=== PATIENT | female | born 1955 | race Caucasian/White ===

== ENCOUNTER 2016-11-21 11:04 | Emergency (ER) | payer OTHER ==
[~2016-11-21] VITALS: Ht 160 cm; Wt 75.0 kg
[2016-11-21 11:10] VITALS: BP 167/96; PULSE 98; RESP 20; O2SAT 98
[2016-11-21 11:18] VITALS: BP 168/74; PULSE 90; RESP 20; TEMP 98.4; O2SAT 97
[2016-11-21 11:24] VITALS: RESP 20; O2SAT 98
[2016-11-21] MEDS ORDERED: SODIUM CHLORIDE 0.9% FLUSH 10 ML FLUSH IVF PRN (11:30)
--- NOTE | 2016-11-21 11:32 | PD ---
HPI Chief Complaint: Dizziness Time Seen by Provider: 11:05 Travel History International Travel<30 days: No Contact w/Intl Traveler<30days: No Traveled to known affect area: No History of Present Illness HPI Patient is a 60-year-old female presenting to the emergency department for evaluation of dizziness and visual changes. 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 Patient states that her vision was cloudy, she felt shaky and she had black floaters. She reports a history of ocular migraines. Patient currently denies any headache, chest pain, shortness of breath, abdominal pain, nausea, vomiting. PFSH Past Medical History Depression: Yes High Cholesterol: Yes Diabetes: Yes Patient Takes Glucophage: Yes GERD: Yes Hypertension: Yes Neurologic: Yes (radiculopathy, neuropathy) Migraines: Yes (ocular) Thyroid Disease: Yes Tetanus Vaccination: > 5 Years Influenza Vaccination: Yes Para: 2 Past Surgical History Hysterectomy: Yes (TOTAL ) Other Surgery: Yes (5 back surgeries) Social History Alcohol Use: Yes (OCC ) Tobacco Use: Yes Substance Use: No Allergies-Medications (Allergen,Severity, Reaction): Coded Allergies: Prevacid (Verified Allergy, Unknown, RASH, 11/21/16) Sulfa (Verified Allergy, Unknown, 11/21/16) Reported Meds & Prescriptions Reported Meds & Active Scripts Active Reported Metformin (Metformin HCl) 1,000 Mg Tab 1,000 Mg PO Q12HR With meals Zocor (Simvastatin) 20 Mg Tab 20 Mg PO HS Protonix (Pantoprazole Sodium) 40 Mg Tab 40 Mg PO BID Flexeril (Cyclobenzaprine HCl) 10 Mg Tab 10 Mg PO TID Zoloft (Sertraline HCl) 100 Mg Tab 100 Mg PO DAILY Telmisartan 40 Mg Tab 40 Mg PO DAILY Mobic (Meloxicam) 15 Mg Tab 15 Mg PO DAILY Trazodone (Trazodone HCl) 100 Mg Tablet 100 Mg PO HS Levothyroxine (Levothyroxine Sodium) 125 Mcg Tab 125 Mcg PO DAILY Aleve (Naproxen Sodium) 220 Mg Capsule 220 Mg PO BID PRN Review of Systems Except as stated in HPI: all other systems reviewed are Neg General / Constitutional: No: Fever, Chills Eyes: Positive: Blurred Vision, Blind Spots, Visual changes HENT: Positive: Lightheadedness, No: Headaches, Neck Pain Cardiovascular: No: Chest Pain or Discomfort, Diaphoresis, Dyspnea on exertion Respiratory: No: Shortness of Breath Gastrointestinal: No: Nausea, Vomiting, Abdominal Pain Genitourinary: No: Dysuria Musculoskeletal: No: Myalgias Neurologic: Positive: Dizziness, Coordination Problem (gait disturbance) Physical Exam Narrative GENERAL: Well-developed, well-nourished, alert female. Resting comfortably in no acute distress. SKIN: Warm and dry. HEAD: Atraumatic. Normocephalic. EYES: Pupils equal and round. No scleral icterus. No injection or drainage. Extraocular movements are intact. ENT: No nasal bleeding or discharge. Mucous membranes pink and moist. NECK: Trachea midline. No JVD. CARDIOVASCULAR: Regular rate and rhythm. RESPIRATORY: No accessory muscle use. Clear to auscultation. Breath sounds equal bilaterally. GASTROINTESTINAL: Abdomen soft, non-tender, nondistended. Hepatic and splenic margins not palpable. MUSCULOSKELETAL: Extremities without clubbing, cyanosis, or edema. No obvious deformities. NEUROLOGICAL: Awake and alert. No obvious cranial nerve deficits. Motor grossly within normal limits. Five out of 5 muscle strength in the arms and legs. Normal speech. PSYCHIATRIC: Appropriate mood and affect; insight and judgment normal. Data Data Last Documented VS Vital Signs Date Time Temp Pulse Resp B/P Pulse Ox O2 Delivery O2 Flow Rate FiO2 11/21/16 11:24 20 98 Room Air 11/21/16 11:18 90 11/21/16 11:18 98.4 168/74 Orders Electrocardiogram (11/21/16 11:17) Prothrombin Time / Inr (Pt) (11/21/16 11:17) Act Partial Throm Time (Ptt) (11/21/16 11:17) Complete Blood Count With Diff (11/21/16 11:17) Comprehensive Metabolic Panel (11/21/16 11:17) Creatine Kinase (Cpk) (11/21/16 11:17) Troponin I (11/21/16 11:17) Urinalysis - C+S If Indicated (11/21/16 11:17) Ct Brain W/O Iv Contrast(Rout) (11/21/16 11:17) Ecg Monitoring (11/21/16 11:17) Iv Access Insert/Monitor (11/21/16 11:17) Oximetry (11/21/16 11:17) Blood Glucose (11/21/16 11:17) Sodium Chloride 0.9% Flush (Ns Flush) (11/21/16 11:30) Labs Laboratory Tests Test 11/21/16 11/21/16 11:17 12:37 Urine Color YELLOW Urine Turbidity CLEAR Urine pH 6.5 Urine Specific [place] 1.008 Urine Protein NEG mg/dL Urine Glucose (UA) NEG mg/dL Urine Ketones NEG mg/dL Urine Occult Blood NEG Urine Nitrite NEG Urine Bilirubin NEG Urine Urobilinogen LESS THAN 2.0 MG/DL Urine Leukocyte Esterase NEG Urine RBC 1 /hpf Urine WBC 1 /hpf Urine Squamous Epithelial <1 /hpf Cells Microscopic Urinalysis Comment CATH-CULT NOT IND White Blood Count 9.1 TH/MM3 Red Blood Count 4.19 MIL/MM3 Hemoglobin 13.3 GM/DL Hematocrit 38.1 % Mean Corpuscular Volume 90.9 FL Mean Corpuscular Hemoglobin 31.6 PG Mean Corpuscular Hemoglobin 34.8 % Concent Red Cell Distribution Width 14.2 % Platelet Count 122 TH/MM3 Mean Platelet Volume 10.7 FL Neutrophils (%) (Auto) 65.1 % Lymphocytes (%) (Auto) 25.8 % Monocytes (%) (Auto) 6.1 % Eosinophils (%) (Auto) 2.6 % Basophils (%) (Auto) 0.4 % Neutrophils # (Auto) 5.9 TH/MM3 Lymphocytes # (Auto) 2.4 TH/MM3 Monocytes # (Auto) 0.6 TH/MM3 Eosinophils # (Auto) 0.2 TH/MM3 Basophils # (Auto) 0.0 TH/MM3 CBC Comment DIFF FINAL Differential Comment Prothrombin Time 9.4 SEC Prothromb Time International 0.9 RATIO Ratio Activated Partial 23.5 SEC Thromboplast Time Sodium Level 139 MEQ/L Potassium Level 4.3 MEQ/L Chloride Level 105 MEQ/L Carbon Dioxide Level 23.9 MEQ/L Anion Gap 10 MEQ/L Blood Urea Nitrogen 13 MG/DL Creatinine 0.79 MG/DL Estimat Glomerular Filtration 75 ML/MIN Rate Random Glucose 108 MG/DL Calcium Level 8.9 MG/DL Total Bilirubin 0.3 MG/DL Aspartate Amino Transf 30 U/L (AST/SGOT) Alanine Aminotransferase 50 U/L (ALT/SGPT) Alkaline Phosphatase 89 U/L Total Creatine Kinase 110 U/L Troponin I LESS THAN 0.02 NG/ML Total Protein 7.3 GM/DL Albumin 3.8 GM/DL MDM Medical Decision Making Medical Screen Exam Complete: Yes Emergency Medical Condition: Yes Interpretation(s) Last Impressions Head CT 11/21/16 1117 Draft Impressions: Service Date/Time: Monday, November 21, 2016 11:55 - CONCLUSION: Normal examination for a patient of this age. Marcell Garcia MD Laboratory Tests Test 11/21/16 11/21/16 11:17 12:37 Urine Color YELLOW Urine Turbidity CLEAR Urine pH 6.5 Urine Specific [place] 1.008 Urine Protein NEG mg/dL Urine Glucose (UA) NEG mg/dL Urine Ketones NEG mg/dL Urine Occult Blood NEG Urine Nitrite NEG Urine Bilirubin NEG Urine Urobilinogen LESS THAN 2.0 MG/DL Urine Leukocyte Esterase NEG Urine RBC 1 /hpf Urine WBC 1 /hpf Urine Squamous Epithelial <1 /hpf Cells Microscopic Urinalysis Comment CATH-CULT NOT IND White Blood Count 9.1 TH/MM3 Red Blood Count 4.19 MIL/MM3 Hemoglobin 13.3 GM/DL Hematocrit 38.1 % Mean Corpuscular Volume 90.9 FL Mean Corpuscular Hemoglobin 31.6 PG Mean Corpuscular Hemoglobin 34.8 % Concent Red Cell Distribution Width 14.2 % Platelet Count 122 TH/MM3 Mean Platelet Volume 10.7 FL Neutrophils (%) (Auto) 65.1 % Lymphocytes (%) (Auto) 25.8 % Monocytes (%) (Auto) 6.1 % Eosinophils (%) (Auto) 2.6 % Basophils (%) (Auto) 0.4 % Neutrophils # (Auto) 5.9 TH/MM3 Lymphocytes # (Auto) 2.4 TH/MM3 Monocytes # (Auto) 0.6 TH/MM3 Eosinophils # (Auto) 0.2 TH/MM3 Basophils # (Auto) 0.0 TH/MM3 CBC Comment DIFF FINAL Differential Comment Prothrombin Time 9.4 SEC Prothromb Time International 0.9 RATIO Ratio Activated Partial 23.5 SEC Thromboplast Time Sodium Level 139 MEQ/L Potassium Level 4.3 MEQ/L Chloride Level 105 MEQ/L Carbon Dioxide Level 23.9 MEQ/L Anion Gap 10 MEQ/L Blood Urea Nitrogen 13 MG/DL Creatinine 0.79 MG/DL Estimat Glomerular Filtration 75 ML/MIN Rate Random Glucose 108 MG/DL Calcium Level 8.9 MG/DL Total Bilirubin 0.3 MG/DL Aspartate Amino Transf 30 U/L (AST/SGOT) Alanine Aminotransferase 50 U/L (ALT/SGPT) Alkaline Phosphatase 89 U/L Total Creatine Kinase 110 U/L Troponin I LESS THAN 0.02 NG/ML Total Protein 7.3 GM/DL Albumin 3.8 GM/DL Vital Signs Date Time Temp Pulse Resp B/P Pulse Ox O2 Delivery O2 Flow Rate FiO2 11/21/16 11:24 20 98 Room Air 11/21/16 11:18 90 20 97 Room Air 11/21/16 11:18 98.4 90 20 168/74 97 Room Air 11/21/16 11:10 98 20 167/96 98 Differential Diagnosis CVA versus TIA versus vertigo versus cardiac arrhythmia versus migraine versus other Narrative Course Patient's 60-year-old female presenting for evaluation of neurological symptoms. Her vital signs are stable, she is neurologically intact. Labs and imaging ordered and pending. Initial EKG shows sinus rhythm with rate of 90. IV access established, patient placed on telemetry monitoring and continuous pulse oximetry. Chemistry reviewed and no acute findings identified, urinalysis is unremarkable , troponin is negative. CT scan of the brain read by radiologist shows no acute findings, and is normal for patient of this age. 1250-patient reassessed, she reports resolution of visual changes as well as dizziness. CBC and coags reviewed, no acute findings. Pt likely suffered a migraine or possible episode of vertigo. She remains neurologically intact. Pt also seen and evaluated by Dr. Parham. Pt requesting to go home. Pt informed of results. She has a PCP with which she can follow up with. She was given strict return precautions. Pt is stable for discharge. Diagnosis Primary Impression: Vertigo Referrals: Khoa Chaney MD PhD 2 days Patient Instructions: General Instructions, Vertigo (ED) Additional Instructions: Follow-up with Dr. Chaney Return to emergency department immediately for any new or worsening symptoms Med/Other Pt SpecificInfo: No Change to Meds Disposition: 01 DISCHARGE HOME Condition: Stable Nicolette Patel [employer] TECHNICIAN Nov 21, 2016 11:32
[2016-11-21] MEDS ORDERED: TELM1TAB PO (11:55)
[2016-11-21] MEDS ORDERED: ZOLO100T PO (11:55)
[2016-11-21] MEDS ORDERED: LEVO125T4 PO (11:55)
[2016-11-21] MEDS ORDERED: PROT40TA PO (11:55)
[2016-11-21] MEDS ORDERED: TRAZ100T6 PO (11:55)
[2016-11-21] MEDS ORDERED: CYCL1TAB29 PO (11:55)
[2016-11-21] MEDS ORDERED: METF1000 PO (11:55)
[2016-11-21] MEDS ORDERED: NAPR220C22 PO (11:55)
[2016-11-21] MEDS ORDERED: ZOCO20TA PO (11:55)
[2016-11-21] MEDS ORDERED: MOBI15TA PO (11:55)
[2016-11-21 12:10] LABS: BLOOD, URINE NEG (NEG); GLUCOSE,URINE NEG (NEG); KETONE, URINE NEG (NEG); NITRITE,URINE NEG (NEG); PH, URINE 6.5 (5.0-8.5); SQUAMOUS EPITHELIAL CELL URINE <1 /hpf (0-5); URINE COLOR YELLOW (YELLW/STRAW)
[2016-11-21 12:15] LABS: COMMENT (UR) CATH-CULT NOT IND; CULTURE IF INDICATED CATH CULTURE NOT IND
--- NOTE | 2016-11-21 12:22 | RADRPT ---
EXAM DATE/TIME: 11/21/2016 11:55 [facility] COMPARISON: No previous studies available for comparison. INDICATIONS : Patient became dizzy,lightheaded,falls to the left. RADIATION DOSE: 29.20 CTDIvol (mGy) MEDICAL HISTORY : Hypertension. Hypothyroidism. Diabetes mellitus type 2. SURGICAL HISTORY : Hysterectomy. Back surgery ENCOUNTER: Initial ACUITY: 1 day PAIN SCALE: 0/10 LOCATION: cranial TECHNIQUE: Multiple contiguous axial images were obtained of the head. Using automated exposure control and adj ustment of the mA and/or kV according to patient size, radiation dose was kept as low as reasonably a chievable to obtain optimal diagnostic quality images. DICOM format image data is available electro nically for review and comparison. FINDINGS: CEREBRUM: The ventricles are normal for age. No evidence of midline shift, mass lesion, hemorrhage or acute in farction. No extra-axial fluid collections are seen. POSTERIOR FOSSA: The cerebellum and brainstem are intact. The 4th ventricle is midline. The cerebellopontine angle i s unremarkable. EXTRACRANIAL: The visualized portion of the orbits is intact. SKULL: The calvaria is intact. No evidence of skull fracture. CONCLUSION: Normal examination for a patient of this age. Marcell Garcia MD on November 21, 2016 at 12:21 Board Certified Radiologist. This report was verified electronically.
[2016-11-21 12:46] LABS: ALKALINE PHOSPHATASE 89 U/L (45-117); ALT (GPT) 50 U/L (10-53); ANION GAP 10 MEQ/L (5-15); AST (GOT) 30 U/L (15-37); BICARBONATE 23.9 MEQ/L (21.0-32.0); BLOOD UREA NITROGEN 13 MG/DL (7-18); CHLORIDE 105 MEQ/L (98-107); CREATINE KINASE 110 U/L (26-192); GLOMERULAR FILTRATION RATE 75 ML/MIN (>89); SODIUM (NA) 139 MEQ/L (136-145); TOTAL BILIRUBIN ADULT 0.3 MG/DL (0.2-1.0)
[2016-11-21 12:47] LABS: POTASSIUM 4.3 MEQ/L (3.5-5.1)
[2016-11-21 12:49] LABS: AUTOMATED NEUTROPHIL # 5.9 TH/MM3 (1.8-7.7); BASOPHIL % 0.4 % (0.0-2.0); EOSINOPHIL # 0.2 TH/MM3 (0-0.4); EOSINOPHIL % 2.6 % (0.0-4.0); HEMATOCRIT 38.1 % (35.0-46.0); HEMO FLAGS DIFF FINAL; LYMPH % 25.8 % (9.0-44.0); LYMPHOCYTE # 2.4 TH/MM3 (1.0-4.8); MEAN CELL VOLUME 90.9 FL (80.0-100.0); MEAN CORPUSCULAR HEMOGLOBIN 31.6 PG (27.0-34.0); MEAN CORPUSCULAR HGB CONC 34.8 % (32.0-36.0); MONO % 6.1 % (0.0-8.0); NEUT % 65.1 % (16.0-70.0); PLATELET COUNT 122 TH/MM3 (150-450); RED BLOOD COUNT 4.19 MIL/MM3 (4.00-5.30); RED CELL DISTRIBUTION WIDTH 14.2 % (11.6-17.2); WHITE BLOOD COUNT 9.1 TH/MM3 (4.0-11.0)
[2016-11-21 12:56] LABS: APTT (PATIENT) 23.5 SEC (24.3-30.1); INTERNATIONAL NORMALIZED RATIO 0.9 RATIO; PROTHROMBIN TIME - PATIENT 9.4 SEC (9.8-11.6)
--- NOTE | 2016-11-21 13:06 | PD ---
Physical Exam Narrative I, Dr. Parham, have reviewed the advance practice practitioner's documentation and am in agreement, met with the patient face to face, made the diagnosis, and the medical decision making was done by me. *My assessment and Findings: Vertigo vs. ocular migraine vs. electrolyte abnormality 60yo F with history of ocular migraine presents with episode of what sounds like peripheral vertigo. Sudden onset dizziness and feeling like she was going to tilt to one side and also had floaters. Worst with head movement. States she always has ringing in her ears. Labs reviewed, no leukocytosis. Troponin negative. UA negative. CT brain negative. Pt reevaluated at bedside and feels better. Her symptoms had resolved on its own. Will have pt follow up with her PMD Dr. Chaney as an outpatient. Data Data Last Documented VS Vital Signs Date Time Temp Pulse Resp B/P Pulse Ox O2 Delivery O2 Flow Rate FiO2 11/21/16 11:24 20 98 Room Air 11/21/16 11:18 90 11/21/16 11:18 98.4 168/74 Orders Electrocardiogram (11/21/16 11:17) Prothrombin Time / Inr (Pt) (11/21/16 11:17) Act Partial Throm Time (Ptt) (11/21/16 11:17) Complete Blood Count With Diff (11/21/16 11:17) Comprehensive Metabolic Panel (11/21/16 11:17) Creatine Kinase (Cpk) (11/21/16 11:17) Troponin I (11/21/16 11:17) Urinalysis - C+S If Indicated (11/21/16 11:17) Ct Brain W/O Iv Contrast(Rout) (11/21/16 11:17) Ecg Monitoring (11/21/16 11:17) Iv Access Insert/Monitor (11/21/16 11:17) Oximetry (11/21/16 11:17) Blood Glucose (11/21/16 11:17) Sodium Chloride 0.9% Flush (Ns Flush) (11/21/16 11:30) Labs Laboratory Tests Test 11/21/16 11/21/16 11:17 12:37 Urine Color YELLOW Urine Turbidity CLEAR Urine pH 6.5 Urine Specific [place] 1.008 Urine Protein NEG mg/dL Urine Glucose (UA) NEG mg/dL Urine Ketones NEG mg/dL Urine Occult Blood NEG Urine Nitrite NEG Urine Bilirubin NEG Urine Urobilinogen LESS THAN 2.0 MG/DL Urine Leukocyte Esterase NEG Urine RBC 1 /hpf Urine WBC 1 /hpf Urine Squamous Epithelial <1 /hpf Cells Microscopic Urinalysis Comment CATH-CULT NOT IND White Blood Count 9.1 TH/MM3 Red Blood Count 4.19 MIL/MM3 Hemoglobin 13.3 GM/DL Hematocrit 38.1 % Mean Corpuscular Volume 90.9 FL Mean Corpuscular Hemoglobin 31.6 PG Mean Corpuscular Hemoglobin 34.8 % Concent Red Cell Distribution Width 14.2 % Platelet Count 122 TH/MM3 Mean Platelet Volume 10.7 FL Neutrophils (%) (Auto) 65.1 % Lymphocytes (%) (Auto) 25.8 % Monocytes (%) (Auto) 6.1 % Eosinophils (%) (Auto) 2.6 % Basophils (%) (Auto) 0.4 % Neutrophils # (Auto) 5.9 TH/MM3 Lymphocytes # (Auto) 2.4 TH/MM3 Monocytes # (Auto) 0.6 TH/MM3 Eosinophils # (Auto) 0.2 TH/MM3 Basophils # (Auto) 0.0 TH/MM3 CBC Comment DIFF FINAL Differential Comment Prothrombin Time 9.4 SEC Prothromb Time International 0.9 RATIO Ratio Activated Partial 23.5 SEC Thromboplast Time Sodium Level 139 MEQ/L Potassium Level 4.3 MEQ/L Chloride Level 105 MEQ/L Carbon Dioxide Level 23.9 MEQ/L Anion Gap 10 MEQ/L Blood Urea Nitrogen 13 MG/DL Creatinine 0.79 MG/DL Estimat Glomerular Filtration 75 ML/MIN Rate Random Glucose 108 MG/DL Calcium Level 8.9 MG/DL Total Bilirubin 0.3 MG/DL Aspartate Amino Transf 30 U/L (AST/SGOT) Alanine Aminotransferase 50 U/L (ALT/SGPT) Alkaline Phosphatase 89 U/L Total Creatine Kinase 110 U/L Troponin I LESS THAN 0.02 NG/ML Total Protein 7.3 GM/DL Albumin 3.8 GM/DL [facility] Supervised Visit with BASSEM: Yes Interpretation(s) EKG: NSR 90bpm. LAD. No ST segment elevation or depression. Diagnosis Primary Impression: Vertigo Sena Parham DO Nov 21, 2016 13:06
--- NOTE | 2016-11-22 08:39 | EKG ---
Date Performed: 11/21/2016 Time Performed: 11:17:00 PTAGE: 60 years EKG: Sinus rhythm LOW QRS VOLTAGE IN PRECORDIAL LEADS BORDERLINE ECG INTERPRETATION BASED ON A DEFAULT AGE OF 40 YEARS NO PREVIOUS TRACING DOCTOR: Lamonte Gallegos Interpretating Date/Time 11/22/2016 08:33:26
== END 2016-11-21 14:10 | disposition home or self-care (01) ==
LOC: NEPC 11:04
DX: R42 Dizziness and giddiness (principal); E78.00 Pure hypercholesterolemia, unspecified; K21.9 Gastro-esophageal reflux disease without esophagitis; E11.40 Type 2 diabetes mellitus with diabetic neuropathy, unspecified; I10 Essential (primary) hypertension; M54.10 Radiculopathy, site unspecified; E07.9 Disorder of thyroid, unspecified; F32.9 Major depressive disorder, single episode, unspecified; Z72.0 Tobacco use
CPT/HCPCS: 70450; 80053; 81001; 82550; 84484; 85025; 85610; 85730; 93005; 99284